=== PATIENT | male | born 1990 ===

== ENCOUNTER 2020-10-10 11:56 | Emergency (ER) | payer BC ==
[2020-10-10] MEDS ORDERED: Lorazepam 2 MG/ML VIAL ONE (12:12)
[2020-10-10] MEDS ORDERED: Haloperidol Lactate 5 MG/ML VIAL ONE (12:21)
[2020-10-10] MEDS ORDERED: diphenhydrAMINE 50 MG/ML VIAL ONE (12:22)
[2020-10-10 12:31] LABS: Hemoglobin 17.5 g/dL (13.5-17.5); Mean Corpuscular Hemoglobin 32.1 pg (27.0-33.0); Mean Corpuscular Volume 94.1 fl (81.2-95.1); Mean Platelet Volume 8.8 fl (7.4-10.4); Platelet Count 349 10x3/uL (150-450); RBC Distribution Width 12.3 % (11.5-14.5); Red Blood Cell (RBC) Count 5.46 10x6/uL (4.32-5.72); White Blood Cell (WBC) Count 7.4 10x3/uL (3.5-10.5)
[2020-10-10 12:40] LABS: ALT (SGPT) 36 U/L (8-55); AST (SGOT) 44 U/L (5-34); Albumin 4.8 g/dL (3.5-5.0); Alcohol 329 mg/dL (Less than 10); Alkaline Phosphatase 87 U/L (40-110); Anion Gap 17 mmol/L (10-20); BUN (Urea Nitrogen) 9 mg/dL (8.9-20.6); Bilirubin, Total 0.5 mg/dL (0.2-1.2); Calc. Creatinine Clearance 0 mL/min (70-130); Calcium 8.7 mg/dL (7.8-10.44); Carbon Dioxide 26 mmol/L (22-29); Chloride 102 mmol/L (98-107); Globulin 3.9 g/dL (2.4-3.5); Glucose 110 mg/dL (70-105); Protein, Total 8.7 g/dL (6.0-8.3); Sodium 141 mmol/L (136-145)
[2020-10-10 12:42] LABS: Acetaminophen Less than 6.0 mcg/mL (10.0-30.0); Alcohol 329 mg/dL (Less than 10); Salicylate Less than 8.0 mg/dL (15.0-30.0)
[2020-10-10 13:12] LABS: Lymphocytes 58 % (21-51)
[2020-10-10 13:13] LABS: Eosinophils 2 % (0-10); Monocytes 4 % (0-10); Reactive Lymphocytes 7 % (0-10)
[2020-10-10 13:16] LABS: Platelet Morphology Comment Appears Adequate
[2020-10-10 13:17] LABS: MDiff Complete? YES
[2020-10-10] MEDS ORDERED: Thiamine HCl 200 MG/2 ML VIAL ONE (14:44)
[2020-10-10 20:43] LABS: Amphetamine Not Detected (NotDetected); Barbiturates Screen Not Detected (NotDetected); Benzodiazepine Screen Detected (NotDetected); Cocaine Metabolite Screen Not Detected (NotDetected); Methadone Not Detected (NotDetected); Methamphetamine Not Detected (NotDetected); Opiate Screen Not Detected (NotDetected); Oxycodone Screen Not Detected (NotDetected); Phencyclidine (PCP) Not Detected (NotDetected); THC/Cannabinoid Screen Detected (NotDetected); Tricyclic Screen Not Detected (NotDetected)
[2020-10-10] MEDS ORDERED: Lorazepam 1 MG TAB ONE (22:13)
== END 2020-10-10 22:25 | disposition home or self-care (01) ==
LOC: CSHERS 11:56
DX: F30.9 Manic episode, unspecified (principal); F10.129 Alcohol abuse with intoxication, unspecified; Y90.8 Blood alcohol level of 240 mg/100 ml or more
CPT/HCPCS: 80053; 80306; 80307; 85025; 93005; 96374; 96375; J1200; J1630; J2060; J3411